=== PATIENT | male | born 1975 | race African-American/Black ===

== ENCOUNTER 2017-05-16 13:21 | Emergency (ER) | payer SELFPAY ==
[~2017-05-16 13:21] MED LIST: Sodium Chloride 0.9% 1,000 ML BAG ONE
[2017-05-16] MEDS ORDERED: Metoclopramide HCl 10 MG TAB ONE (13:57)
[2017-05-16] MEDS ORDERED: diphenhydrAMINE HCl 50 MG/ML 1 ML VIAL ONE (13:57)
[2017-05-16] MEDS ORDERED: methylPREDNISolone Sod Succ/PF 125 MG/2 ML VIAL ONE (13:57)
[2017-05-16] MEDS ORDERED: Metoclopramide HCl 10 MG/2 ML VIAL ONE (13:58)
[2017-05-16] MEDS ORDERED: Ondansetron HCl/PF 4 MG/2 ML Vial ONE (13:59)
[2017-05-16] MEDS ORDERED: Dexamethasone 10 MG/ML VIAL ONE (13:59)
[2017-05-16] MEDS ORDERED: Ketorolac Tromethamine 30 MG/ML VIAL ONE (13:59)
[2017-05-16 15:18] LABS: Hemoglobin 14.8 g/dL (14.0-18.0); Mean Corpuscular Hemoglobin 33.3 pg (27.0-31.0); Mean Corpuscular Volume 99.5 fL (80.0-94.0); Red Blood Cell (RBC) Count 4.44 mill/uL (4.70-6.10); White Blood Cell (WBC) Count 5.6 thou/uL (4.8-10.8)
[2017-05-16 15:19] LABS: #Basophils 0.2 thou/uL (0.0-0.2); #Eosinphils 0.3 thou/uL (0.0-0.7); #Lymphocytes 2.1 thou/uL (1.20-3.40); #Monocytes 0.4 thou/uL (0.11-0.59); #Neutrophils 2.8 thou/uL (1.40-6.50); %Basophils 2.7 % (0.0-1.0); %Eosinophils 4.5 % (0.0-10.0); %Lymphocytes 36.3 % (21.0-51.0); %Monocytes 6.9 % (0.0-10.0); %Neutrophils 49.5 % (42.0-75.0); Mean Corpuscular HGB CONC 33.5 g/dL (32.0-36.0); Mean Platelet Volume 6.9 fL (7.4-10.4); Platelet Count 270 thou/uL (130-400); RBC Distribution Width 12.7 % (11.5-14.5)
[2017-05-16 15:26] LABS: ALT (SGPT) 20 U/L (8-55); AST (SGOT) 23 U/L (5-34); Alkaline Phosphatase 68 U/L (40-150); Anion Gap 14 mmol/L (10-20); BUN (Urea Nitrogen) 8 mg/dL (8.9-20.6); Bilirubin, Total 0.7 mg/dL (0.2-1.2); Calc. Creatinine Clearance 0 mL/min (70-130); Calcium 8.6 mg/dL (7.8-10.44); Carbon Dioxide 23 mmol/L (22-29); Chloride 109 mmol/L (98-107); Estimated GFR-MDRD Greater than 90; Globulin 2.8 g/dL (2.4-3.5); Glucose 79 mg/dL (70-105); Potassium 3.8 mmol/L (3.5-5.1); Protein, Total 6.8 g/dL (6.0-8.3); Sodium 142 mmol/L (136-145)
== END 2017-05-16 16:00 | disposition home or self-care (01) ==
LOC: MADERS 13:21
DX: Z57.8 Occupational exposure to other risk factors (principal); I10 Essential (primary) hypertension; F17.210 Nicotine dependence, cigarettes, uncomplicated; Z79.899 Other long term (current) drug therapy
CPT/HCPCS: 36415; 80053; 85025; 86140; 96361; 96374; 96375; J1100; J1200; J1885; J2405; J2765; J2930; J7050

== ENCOUNTER 2019-02-09 10:03 | Emergency (ER) | payer SELFPAY ==
[2019-02-09] MEDS ORDERED: Sodium Chloride 0.9% 1,000 ML ONE (10:36)
[2019-02-09] MEDS ORDERED: Ibuprofen 800 MG TAB ONE (10:36)
--- NOTE | 2019-02-09 10:50 | RAD ---
TWO VIEWS CHEST: Date: 02-09-19 Provided Clinical History: Cough. FINDINGS: Comparison 12-02-11. Cardiac and mediastinal silhouette is within normal limits. Lungs appear clear. No pleural fluid or pneumothorax apparent. IMPRESSION: No evidence for an acute cardiopulmonary process. POS: [facility]
[2019-02-09 11:08] LABS: #Basophils 0.2 thou/uL (0.0-0.2); #Eosinphils 0.4 thou/uL (0.0-0.7); #Lymphocytes 2.7 thou/uL (1.20-3.40); #Monocytes 0.6 thou/uL (0.11-0.59); #Neutrophils 3.2 thou/uL (1.40-6.50); %Basophils 2.6 % (0.0-1.0); %Eosinophils 5.6 % (0.0-10.0); %Lymphocytes 38.1 % (21.0-51.0); %Monocytes 8.5 % (0.0-10.0); %Neutrophils 45.2 % (42.0-75.0); Hemoglobin 15.7 g/dL (14.0-18.0); Mean Corpuscular HGB CONC 32.2 g/dL (32.0-36.0); Mean Corpuscular Hemoglobin 32.4 pg (27.0-31.0); Mean Corpuscular Volume 100.6 fL (78.0-98.0); Mean Platelet Volume 6.3 fL (7.4-10.4); Platelet Count 270 thou/uL (130-400); RBC Distribution Width 14.3 % (11.5-14.5); Red Blood Cell (RBC) Count 4.84 mill/uL (4.70-6.10); White Blood Cell (WBC) Count 7.1 thou/uL (4.8-10.8)
[2019-02-09 11:25] LABS: ALT (SGPT) 30 U/L (8-55); AST (SGOT) 42 U/L (5-34); Albumin 4.5 g/dL (3.5-5.0); Alkaline Phosphatase 70 U/L (40-150); Anion Gap 20 mmol/L (10-20); BUN (Urea Nitrogen) 8 mg/dL (8.9-20.6); Bilirubin, Total 0.7 mg/dL (0.2-1.2); Calc. Creatinine Clearance 0 mL/min (70-130); Calcium 9.1 mg/dL (7.8-10.44); Carbon Dioxide 23 mmol/L (22-29); Chloride 106 mmol/L (98-107); Estimated GFR-MDRD Greater than 90; Globulin 3.1 g/dL (2.4-3.5); Glucose 74 mg/dL (70-105); Potassium 3.7 mmol/L (3.5-5.1); Protein, Total 7.6 g/dL (6.0-8.3); Sodium 145 mmol/L (136-145)
== END 2019-02-09 13:52 | disposition home or self-care (01) ==
LOC: MADERS 10:03
DX: B34.9 Viral infection, unspecified (principal); Z77.098 Contact with and (suspected) exposure to other hazardous, chiefly nonmedicinal, chemicals; Z71.6 Tobacco abuse counseling; I10 Essential (primary) hypertension; F17.210 Nicotine dependence, cigarettes, uncomplicated; Z79.899 Other long term (current) drug therapy
CPT/HCPCS: 36415; 71046; 80053; 83605; 84484; 85025; 87804; 93005; 96360; 96361; 99406; J7050

== ENCOUNTER 2020-12-11 08:14 | Emergency (ER) | payer SELFPAY ==
[2020-12-11] MEDS ORDERED: Morphine 4 MG/ML VIAL ONE ×2 (08:45→09:46)
[2020-12-11] MEDS ORDERED: Sodium Chloride 0.9% 1,000 ML ONE (08:45)
[2020-12-11 09:13] LABS: Hemoglobin 13.3 g/dL (14.0-18.0); Mean Corpuscular HGB CONC 32.1 g/dL (32.0-36.0); Mean Corpuscular Hemoglobin 31.4 pg (27.0-31.0); Mean Corpuscular Volume 97.8 fL (78.0-98.0); Mean Platelet Volume 8.2 fL (7.4-10.4); Platelet Count 150 thou/uL (130-400); RBC Distribution Width 14.7 % (11.5-14.5); Red Blood Cell (RBC) Count 4.23 mill/uL (4.70-6.10); White Blood Cell (WBC) Count 7.4 thou/uL (4.8-10.8)
[2020-12-11 09:28] LABS: ALT (SGPT) 76 U/L (8-55); AST (SGOT) 100 U/L (5-34); Albumin 4.3 g/dL (3.5-5.0); Alkaline Phosphatase 78 U/L (40-110); Anion Gap 20 mmol/L (10-20); BUN (Urea Nitrogen) 5 mg/dL (8.9-20.6); Bilirubin, Total 0.6 mg/dL (0.2-1.2); Calc. Creatinine Clearance 0 mL/min (70-130); Calcium 9.2 mg/dL (7.8-10.44); Carbon Dioxide 22 mmol/L (22-29); Chloride 102 mmol/L (98-107); Globulin 3.3 g/dL (2.4-3.5); Glucose 94 mg/dL (70-105); Potassium 3.7 mmol/L (3.5-5.1); Protein, Total 7.6 g/dL (6.0-8.3); Sodium 140 mmol/L (136-145)
[2020-12-11 09:37] LABS: Band 1 % (5-11); Lymphocytes 17 % (21-51); MDiff Complete? YES; Monocytes 6 % (0-10); Neutrophil 72 % (42-75); Platelet Morphology Comment Appears Adequate; RBC Morphology Normal; Reactive Lymphocytes 4 % (0-10)
--- NOTE | 2020-12-11 09:40 | CT ---
CT Chest Abd Pelvis W Con CT thoracic spine with contrast CT lumbosacral spine with contrast History: Pain after fall Comparison: None. Findings: Lungs are clear. No pneumothorax. Trace left basilar effusion. Low-grade atelectatic change s left lung base. No pericardial effusion. No mediastinal adenopathy. Sternum and manubrium are intact. Right-sided ribs are without fracture. The clavicles are intact. Nondisplaced left lateral eighth rib fracture. Nondisplaced left lateral ninth rib fracture. Nondispl aced left lateral 10th rib fracture. Posterior left 10th rib fracture. Minimally displaced left posterior 11th rib fracture. No 12th rib fracture appreciated. CT thoracic spine: No fracture or malalignment. CT lumbosacral spine: No acute fracture or malalignment. Diffuse hepatic steatosis. Spleen is without injury and a small. The adrenal glands and kidneys are w ithout injury. No free intraperitoneal gas or fluid. No acute aortic injury. No retroperitoneal periaortic adenopathy. No mesenteric hematoma. No dilated loops of large or small bowel. 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 No acute pelvic fracture. No SI joint widening. Mild enthesopathic changes along the adductor longus tendons. No sacral fracture. Gluteus musculature is without hematoma. Hypodensity hepatic segment 6 may reflect hemangioma versus cyst. Impression: 1. Nondisplaced left lateral ninth and 10th rib fractures with minimal displacement of posterior left 10th and 11th rib fractures. 2. Low-grade left basilar atelectasis and trace left pleural effusion. 3. No pneumothorax.
[2020-12-11] MEDS ORDERED: Ketorolac Tromethamine 30 MG/ML VIAL ONE (09:46)
[2020-12-11 09:48] LABS: Bilirubin Negative (Negative); Blood, Urine Negative (Negative); Clarity Clear (Clear); Glucose, Urine (Dipstick) Negative (Negative); Ketone, Urine 15 mg/dL (Negative); Leukocyte Negative (Negative); Nitrite Negative (Negative); Protein, Urine (Dipstick) 30 mg/dL (Neg-Trace); Specific Gravity, Urine 1.015 (1.005-1.030); Urobilinogen 0.2 mg/dL (Less than 2); pH, Urine 5.5 (5.0-9.0)
[2020-12-11] MEDS ORDERED: Cyclobenzaprine 10 MG TAB ONE (09:48)
[2020-12-11] MEDS ORDERED: Acetaminophen 500 MG TAB ONE (09:48)
[2020-12-11 09:55] LABS: Bacteria/HPF None Seen HPF (None Seen); Mucous/LPF Rare LPF (<2+); RBC/HPF None Seen HPF (0-3); Squamous Epithelial 0-3 HPF (0-3); WBC/HPF 0-3 HPF (0-3)
[2020-12-11] MEDS ORDERED: Iopamidol 370 76% 100 ML VIAL ONE (12:22)
== END 2020-12-11 10:31 | disposition home or self-care (01) ==
LOC: MADERS 08:14
DX: S22.42XA Multiple fractures of ribs, left side, initial encounter for closed fracture (principal); M62.838 Other muscle spasm; F17.210 Nicotine dependence, cigarettes, uncomplicated; I10 Essential (primary) hypertension; W11.XXXA Fall on and from ladder, initial encounter
CPT/HCPCS: 71260; 74177; 80053; 81003; 81015; 85025; 96374; 96375; 96376; J1885; J2270; J7050; Q9967

== ENCOUNTER 2021-07-19 23:19 | Emergency (ER) | payer SELFPAY ==
[2021-07-19] MEDS ORDERED: Aspirin Chewable 81 MG TAB ONE (23:45)
[2021-07-19] MEDS ORDERED: Thiamine HCl 200 MG/2 ML VIAL ONE (23:46)
[2021-07-19] MEDS ORDERED: Dextrose 5 %-0.45 % NaCl 1,000 ML ONE (23:46)
[2021-07-19] MEDS ORDERED: Multivit, Adult Inj 10 ML VIAL ONE (23:46)
[2021-07-19 23:56] LABS: #Basophils 0.2 thou/uL (0.0-0.2); #Eosinphils 0.1 thou/uL (0.0-0.7); #Monocytes 0.8 thou/uL (0.11-0.59); #Neutrophils 3.1 thou/uL (1.40-6.50); %Basophils 2.4 % (0.0-1.0); %Eosinophils 1.5 % (0.0-10.0); %Lymphocytes 41.1 % (21.0-51.0); %Monocytes 11.7 % (0.0-10.0); %Neutrophils 43.3 % (42.0-75.0); Hemoglobin 13.2 g/dL (14.0-18.0); Mean Corpuscular HGB CONC 31.4 g/dL (32.0-36.0); Mean Corpuscular Hemoglobin 28.7 pg (27.0-31.0); Mean Corpuscular Volume 91.3 fL (78.0-98.0); Mean Platelet Volume 8.6 fL (7.4-10.4); Platelet Count 205 thou/uL (130-400); RBC Distribution Width 17.4 % (11.5-14.5); White Blood Cell (WBC) Count 7.2 thou/uL (4.8-10.8)
[2021-07-20] LABS: Bilirubin Negative (Negative); Blood, Urine Trace (Negative); Clarity Clear (Clear); Glucose, Urine (Dipstick) Negative (Negative); Ketone, Urine Negative (Negative); Leukocyte Negative (Negative); Nitrite Negative (Negative); Protein, Urine (Dipstick) Negative (Neg-Trace); Urobilinogen 0.2 mg/dL (Less than 2)
[2021-07-20 00:05] LABS: Specific Gravity, Urine 1.003 (1.002-1.036)
[2021-07-20 00:17] LABS: ALT (SGPT) 135 U/L (8-55); AST (SGOT) 275 U/L (5-34); Albumin 4.4 g/dL (3.5-5.0); Alkaline Phosphatase 80 U/L (40-110); Anion Gap 19 mmol/L (10-20); BUN (Urea Nitrogen) Less than 4 mg/dL (8.9-20.6); Bilirubin, Total 0.6 mg/dL (0.2-1.2); CK (CPK) 203 U/L (30-200); Calc. Creatinine Clearance 0 mL/min (70-130); Calcium 9.1 mg/dL (7.8-10.44); Carbon Dioxide 23 mmol/L (22-29); Chloride 103 mmol/L (98-107); Globulin 3.4 g/dL (2.4-3.5); Glucose 97 mg/dL (70-105); Lipase 159 U/L (8-78); Protein, Total 7.8 g/dL (6.0-8.3); Sodium 141 mmol/L (136-145)
[2021-07-20 00:18] LABS: Bacteria/HPF None Seen HPF (None Seen); RBC/HPF None Seen HPF (0-3); Squamous Epithelial None Seen HPF (0-3); WBC/HPF None Seen HPF (0-3)
[2021-07-21 01:21] LABS: SARS-CoV-2 PCR by NAA Not Detected (NotDetected)
== END 2021-07-20 00:50 | disposition home or self-care (01) ==
LOC: MADERS 23:19
DX: B34.9 Viral infection, unspecified (principal); F10.10 Alcohol abuse, uncomplicated; Z20.822 Contact with and (suspected) exposure to COVID-19; R00.2 Palpitations; J34.89 Other specified disorders of nose and nasal sinuses; R06.00 Dyspnea, unspecified; M79.10 Myalgia, unspecified site; R05 Cough; R19.7 Diarrhea, unspecified; E78.5 Hyperlipidemia, unspecified; F17.210 Nicotine dependence, cigarettes, uncomplicated
CPT/HCPCS: 71045; 80053; 81003; 81015; 82550; 83690; 84484; 85025; 93005; 96365; J3411; J7042; U0003; U0005

== ENCOUNTER 2021-11-15 10:47 | Emergency (ER) | payer BC ==
[2021-11-15] MEDS ORDERED: Boostrix 0.5 ML (Tdap) VIAL ONE (11:14)
== END 2021-11-15 11:29 | disposition home or self-care (01) ==
LOC: MADERS 10:47
DX: S61.211A Laceration without foreign body of left index finger without damage to nail, initial encounter (principal); W26.8XXA Contact with other sharp object(s), not elsewhere classified, initial encounter; I10 Essential (primary) hypertension; E78.5 Hyperlipidemia, unspecified; F17.210 Nicotine dependence, cigarettes, uncomplicated
CPT/HCPCS: 12001; 90471; 90715

== ENCOUNTER 2021-11-20 07:17 | Emergency (ER) | payer BC ==
[2021-11-20] MEDS ORDERED: Ondansetron ODT 4 MG TAB ONE (08:17)
[2021-11-21 13:16] LABS: SARS-CoV-2 PCR by NAA Not Detected (NotDetected)
== END 2021-11-20 09:00 | disposition home or self-care (01) ==
LOC: MADERS 07:17
DX: K52.9 Noninfective gastroenteritis and colitis, unspecified (principal); I10 Essential (primary) hypertension; E78.5 Hyperlipidemia, unspecified; F17.210 Nicotine dependence, cigarettes, uncomplicated; Z20.822 Contact with and (suspected) exposure to COVID-19
CPT/HCPCS: 99284; Q0162; U0003; U0005

== ENCOUNTER 2023-03-10 10:50 | Emergency (ER) | payer BC, SELFPAY ==
[2023-03-10] MEDS ORDERED: Sodium Chloride 0.9% 1,000 ML ONE (11:31)
[2023-03-10] MEDS ORDERED: Dexamethasone 10 MG/ML VIAL ONE (11:31)
[2023-03-10] MEDS ORDERED: Ketorolac Tromethamine 30 MG/ML VIAL ONE (11:31)
[2023-03-10] MEDS ORDERED: diphenhydrAMINE 50 MG/ML VIAL ONE (11:31)
[2023-03-10] MEDS ORDERED: Metoclopramide HCl 10 MG/2 ML VIAL ONE (11:31)
[2023-03-10 11:41] LABS: Anion Gap 18 mmol/L (10-20); BUN (Urea Nitrogen) 6 mg/dL (8.9-20.6); Calc. Creatinine Clearance 0 mL/min (70-130); Carbon Dioxide 25 mmol/L (22-29); Chloride 103 mmol/L (98-107); Estimated GFR 113; Glucose 98 mg/dL (70-105); Potassium 3.7 mmol/L (3.5-5.1); Sodium 142 mmol/L (136-145)
[2023-03-10 11:49] LABS: Band 1 % (5-11); Hemoglobin 13.1 g/dL (14.0-18.0); Lymphocytes 8 % (21-51); MDiff Complete? YES; Mean Corpuscular HGB CONC 31.2 g/dL (32.0-36.0); Mean Corpuscular Hemoglobin 28.6 pg (27.0-31.0); Mean Corpuscular Volume 91.7 fl (78.0-98.0); Mean Platelet Volume 8.6 fL (7.4-10.4); Monocytes 3 % (0-10); Neutrophil 81 % (42-75); Platelet Count 235 10x3/uL (130-400); Platelet Morphology Comment Appears Adequate; RBC Distribution Width 18.2 % (11.5-14.5); RBC Morphology Normal; Reactive Lymphocytes 7 % (0-10); Red Blood Cell (RBC) Count 4.58 mill/uL (4.70-6.10); White Blood Cell (WBC) Count 7.7 10x3/uL (4.8-10.8)
[2023-03-10] MEDS ORDERED: cloNIDine 0.1mg/24 Hour PATCH ONE (12:08)
[2023-03-10] MEDS ORDERED: cloNIDine 0.1 MG TAB ONE (12:08)
[2023-03-10] MEDS ORDERED: niCARdipine 25 MG/10 ML SDV ONE ×2 (13:49→13:51)
[2023-03-10] MEDS ORDERED: Sodium Chloride 0.9% 250 ML 250 ML ONE (13:49)
== END 2023-03-10 16:14 | disposition short-term general hospital (02) ==
LOC: MADERS 10:50
DX: I67.4 Hypertensive encephalopathy (principal); I10 Essential (primary) hypertension; E78.5 Hyperlipidemia, unspecified; F17.210 Nicotine dependence, cigarettes, uncomplicated
CPT/HCPCS: 70450; 80048; 84484; 85025; 87081; 87430; 87804; 93005; 96365; 96366; 96367; 96375; J1100; J1200; J1885; J2765; J7050; U0003; U0005

== ENCOUNTER 2023-08-03 15:01 | Emergency (ER) | payer OTHER ==
[2023-08-03 15:40] LABS: #Basophils 0.1 thou/uL (0.0-0.2); #Eosinphils 0.1 thou/uL (0.0-0.7); #Lymphocytes 3.6 thou/uL (1.20-3.40); #Monocytes 0.9 thou/uL (0.11-0.59); #Neutrophils 3.7 thou/uL (1.40-6.50); %Basophils 1.7 % (0.0-1.0); %Eosinophils 0.9 % (0.0-10.0); %Lymphocytes 42.7 % (21.0-51.0); %Monocytes 11.2 % (0.0-10.0); %Neutrophils 43.5 % (42.0-75.0); ALT (SGPT) 201 U/L (8-55); AST (SGOT) 366 U/L (5-34); Acetaminophen Less than 10 mcg/mL (10.0-30.0); Albumin 4.7 g/dL (3.5-5.0); Alcohol 160.9 mg/dL (Less than 10); Alkaline Phosphatase 85 U/L (40-110); Anion Gap 24 mmol/L (10-20); Anisocytosis SLIGHT = 6-15 cells (100X) (0-5/hpf); BUN (Urea Nitrogen) 4 mg/dL (8.9-20.6); Bilirubin, Total 0.7 mg/dL (0.2-1.2); Calc. Creatinine Clearance 0 mL/min (70-130); Calcium 9.7 mg/dL (7.8-10.44); Carbon Dioxide 17 mmol/L (22-29); Chloride 98 mmol/L (98-107); Estimated GFR 110; Globulin 3.9 g/dL (2.4-3.5); Glucose 104 mg/dL (70-105); Hematocrit 37.5 % (42.0-52.0); Hemoglobin 12.1 g/dL (14.0-18.0); Hypochromia SLIGHT = 6-15 cells (100X) (0-5/hpf); Lipase 62 U/L (8-78); MDiff Complete? YES; Magnesium 1.8 mg/dL (1.6-2.6); Mean Corpuscular HGB CONC 32.4 g/dL (32.0-36.0); Mean Corpuscular Hemoglobin 27.6 pg (27.0-31.0); Mean Corpuscular Volume 85.4 fl (78.0-98.0); Mean Platelet Volume 8.4 fL (7.4-10.4); Platelet Adequacy Comment Appears Adequate; Platelet Count 256 10x3/uL (130-400); Potassium 3.3 mmol/L (3.5-5.1); Protein, Total 8.6 g/dL (6.0-8.3); RBC Distribution Width 19.9 % (11.5-14.5); Salicylate Less than 8.0 mg/dL (15.0-30.0); Sodium 136 mmol/L (136-145); White Blood Cell (WBC) Count 8.4 10x3/uL (4.8-10.8)
[2023-08-03 16:55] LABS: Amphetamine Not Detected (NotDetected); Barbiturates Screen Not Detected (NotDetected); Benzodiazepine Screen Not Detected (NotDetected); Cocaine Metabolite Screen Not Detected (NotDetected); Methadone Not Detected (NotDetected); Methamphetamine Not Detected (NotDetected); Opiate Screen Not Detected (NotDetected); Oxycodone Screen Not Detected (NotDetected); Phencyclidine (PCP) Not Detected (NotDetected); THC/Cannabinoid Screen Detected (NotDetected); Tricyclic Screen Not Detected (NotDetected)
[2023-08-03 17:06] LABS: Troponin I Less than 0.010 ng/mL (< 0.028)
[2023-08-03] MEDS ORDERED: Potassium Chloride 20 MEQ TAB ONE (17:33)
== END 2023-08-03 17:40 | disposition home or self-care (01) ==
LOC: MADERS 15:01
DX: F41.0 Panic disorder [episodic paroxysmal anxiety] (principal); F10.10 Alcohol abuse, uncomplicated; E87.6 Hypokalemia; F12.10 Cannabis abuse, uncomplicated; R74.01 Elevation of levels of liver transaminase levels; I10 Essential (primary) hypertension; F17.210 Nicotine dependence, cigarettes, uncomplicated
CPT/HCPCS: 71045; 80053; 80306; 80307; 83690; 83735; 83880; 84484; 85025; 93005

== ENCOUNTER 2024-07-01 12:47 | Outpatient (CLI) | payer OTHER | END 2024-07-01 12:48 | disposition home or self-care (01) | LOC: MADRAD 12:47 | PROVIDERS: ATTEND Nurse Practitioner Family | DX: R09.89 Other specified symptoms and signs involving the circulatory and respiratory systems (principal) | CPT/HCPCS: 71046 ==